=== PATIENT | female | born 1955 | race Caucasian/White ===

== ENCOUNTER 2017-02-02 21:27 | Emergency (ER) | payer OTHER ==
[2017-02-02 21:50] VITALS: TEMP 97.9; BMI 34.0
--- NOTE | 2017-02-02 21:59 | PDOC ---
Rapid Medical Evaluation Chief Complaint: Chest Pain Time Seen by Provider: 02/02/17 21:57 Medical Evaluation: Allergies Allergy/AdvReac Type Severity Reaction Status Date / Time No Known Allergies Allergy Verified 02/02/17 21:47 Vital Signs Temp Pulse Resp BP Pulse Ox 97.9 F 68 18 156/96 96 02/02/17 21:47 02/02/17 21:47 02/02/17 21:47 02/02/17 21:47 02/02/17 21:47 02/02/17 21:58 Pt not seen but ekg ordered
--- NOTE | 2017-02-02 22:11 | PDOC ---
History of Present Illness - General History Source: Patient Exam Limitations: No Limitations - History of Present Illness Initial Comments: 02/02/17 22:21 The patient is a 61 year old female with no significant past medical history who presents to the ED with left sternal border chest pain 1 hour prior to presentation. Patient describes her pain as nonradiating, intermittent, and sharp in nature. She reports SOB when pain is at its worse. Patient denies diaphoresis, lightheadedness, jaw pain, shoulder pain, arm pain, nausea, or vomiting. Daughter gave patient two 81 mg aspirin prior to presentation. Patient states she has not experience chest pain in the past. The patient denies fever, chills, cough, abdominal pain, and diarrhea. Allergies: NKDA Social History: Current smoker (half pack per day) Past Surgical History: appendectomy PCP: Dr. Pura Anglin <Mar Real - Last Filed: 02/02/17 22:23> - General History Source: Patient <Levon Rhodes - Last Filed: 02/03/17 00:01> - General Chief Complaint: Chest Pain Stated Complaint: CHEST PAIN Time Seen by Provider: 02/02/17 21:57 Past History <Mar Real - Last Filed: 02/02/17 22:23> - Past Medical History Other medical history: denies - Surgical History Appendectomy: Yes - Immunization History Immunization Up to Date: Yes - Psycho/Social/Smoking Cessation Hx Suicidal Ideation: No Smoking History: Never smoked Number of Cigarettes Smoked Daily: 12 Information on smoking cessation initiated: No Hx Alcohol Use: No Drug/Substance Use Hx: No Substance Use Type: Alcohol <Levon Rhodes - Last Filed: 02/03/17 00:01> - Past Medical History Allergies/Adverse Reactions: Allergies Allergy/AdvReac Type Severity Reaction Status Date / Time No Known Allergies Allergy Verified 02/02/17 21:47 Home Medications: Ambulatory Orders NK [No Known Home Medication] 02/02/17 Review of Systems - Review of Systems Able to Perform ROS?: Yes Comments:: 02/02/17 22:21 CONSTITUTIONAL: Absent: fever, no chills, no fatigue EYES: Absent: visual changes ENT: Absent: ear pain, no sore throat CARDIOVASCULAR: +left sternal border chest pain Absent: no palpitations RESPIRATORY: +SOB Absent: cough GI: Absent: abdominal pain, no nausea, no vomiting, no constipation, no diarrhea GENITOURINARY: Absent: dysuria, no frequency, no hematuria MUSKULOSKELETAL: Absent: back pain, no arthralgia, no myalgia SKIN: Absent: rash NEURO: Absent: headache <Mar Real - Last Filed: 02/02/17 22:23> *Physical Exam - Vital Signs Last Vital Signs Temp Pulse Resp BP Pulse Ox 97.9 F 68 18 156/96 96 02/02/17 21:47 02/02/17 21:47 02/02/17 21:47 02/02/17 21:47 02/02/17 21:47 - Physical Exam Comments: 02/02/17 22:21 GENERAL: Well-appearing, well-nourished. No apparent distress. HEENT: Normocephalic, atraumatic. PERRL, EOM intact. CARDIOVASCULAR: Normal S1, S2. Regular rate and rhythm. PULMONARY: Clear to auscultation bilaterally. ABDOMEN: Soft, non-distended, non-tender. EXTREMITIES: Normal ROM in all four extremities. No gross deformities. SKIN: Warm, dry. No rash NEUROLOGICAL: No focal neurological deficits. <Mar Real - Last Filed: 02/02/17 22:23> - Vital Signs Last Vital Signs Temp Pulse Resp BP Pulse Ox 97.9 F 68 18 156/96 96 02/02/17 21:47 02/02/17 21:47 02/02/17 21:47 02/02/17 21:47 02/02/17 21:47 <Levon Rhodes - Last Filed: 02/03/17 00:01> Heart Score/ECG Review - ECG Impressions Comment:: 02/02/17 22:23 NSR @67bpm Anterior infarct, age undetermined Abnormal ECG <Mar Real - Last Filed: 02/02/17 22:23> ED Treatment Course - LABORATORY CBC & Chemistry Diagram: 02/02/17 22:40 02/02/17 22:40 <Levon Rhodes - Last Filed: 02/03/17 00:01> Medical Decision Making - Medical Decision Making 02/03/17 00:01 Dr. Rhodes: The scribe's documentation has been prepared under my direction and personally reviewed by me in its entirery. I confirm that the note above accurately reflects all work, treatment, procedures, and medical decision making performed by me. <Levon Rhodes - Last Filed: 02/03/17 00:01> *DC/Admit/Observation/Transfer - Attestations Scribe Attestion: 02/02/17 22:21 Documentation prepared by Mar Real, acting as medical imaging specialist for Levon Rhodes MD <Mar Real - Last Filed: 02/02/17 22:23> - Discharge Dispostion Admit: No <Levon Rhodes - Last Filed: 02/03/17 00:01> Diagnosis at time of Disposition: Chest pain Qualifiers: Chest pain type: unspecified Qualified Code(s): R07.9 - Chest pain, unspecified - Discharge Dispostion Disposition: HOME Condition at time of disposition: Stable - Referrals Referrals: Pura Anglin MD [Primary Care Provider] - - Patient Instructions Printed Discharge Instructions: DI for Chest Pain
[2017-02-02] MEDS ORDERED: ACETAMINOPHEN 325 MG TABLET (FP) PO ONE (22:12)
[2017-02-02] MEDS ORDERED: ACETAMINOPHEN 325 MG TABLET (FP) ONE (22:20)
[2017-02-02 22:52] LABS: EOSINOPHIL 2.6 % (0-4.5); MCH 32.3 pg (25.7-33.7); MCHC 34.1 g/dl (32.0-36.0); MEAN CELL VOLUME 94.8 fl (80-96); NEUTROPHILS 48.2 % (42.8-82.8); PLATELET COUNT 276 K/MM3 (134-434); RDW 13.4 % (11.6-15.6); WHITE BLOOD COUNT 9.1 K/mm3 (4.0-10.0)
[2017-02-02 23:22] LABS: INR 0.92 (0.82-1.09); PROTHROMBIN TIME (PATIENT) 10.1 SEC (9.98-11.88)
[2017-02-02 23:33] LABS: ALBUMIN 3.9 g/dl (3.4-5.0); ALK PHOS 90 U/L (45-117); ANION GAP 10 (8-16); BILIRUBIN,TOTAL 0.3 mg/dL (0.2-1.0); CO2 27 mmol/L (21-32); CREATININE 0.7 mg/dL (0.55-1.02); GLUCOSE,RANDOM 93 mg/dL (74-106); SGOT/AST 14 U/L (15-37); SGPT/ALT 23 U/L (12-78); TOT PROT 6.7 g/dl (6.4-8.2)
[2017-02-02 23:34] LABS: TROPONIN I < 0.02 ng/ml (0.00-0.05)
[2017-02-02 23:52] VITALS: BP 160/76; PULSE 71
--- NOTE | 2017-02-03 14:12 | EKG ---
Test Reason : Blood Pressure : / mmHG Vent. Rate : 067 BPM Atrial Rate : 067 BPM P-R Int : 130 ms QRS Dur : 076 ms QT Int : 394 ms P-R-T Axes : 040 030 038 degrees QTc Int : 416 ms NORMAL SINUS RHYTHM ANTERIOR INFARCT , AGE UNDETERMINED ABNORMAL ECG WHEN COMPARED WITH ECG OF 07-MAR-2011 10:06, ANTERIOR INFARCT IS NOW PRESENT Confirmed by PITER LLANOS, LYLE ([id number]) on 02/03/2017 2:12:40 PM Referred By: Confirmed By:LYLE DUMAS MD
== END 2017-02-03 00:11 | disposition home or self-care (01) ==
LOC: JER 21:27
DX: R07.9 Chest pain, unspecified (principal)
CPT/HCPCS: 36415; 80053; 82550; 84484; 85025; 85610; 93005; 93010; 99283-25

== ENCOUNTER 2019-10-27 04:05 | Observation (INO) | payer OTHER ==
[2019-10-27 04:27] VITALS: TEMP 97.5; BMI 34.5
--- NOTE | 2019-10-27 05:03 | PDOC ---
History of Present Illness - General Chief Complaint: Palpitations Stated Complaint: PALPITATIONS,NAUSEA,HEADACHE Time Seen by Provider: 10/27/19 04:59 Past History - Past Medical History Allergies/Adverse Reactions: Allergies Allergy/AdvReac Type Severity Reaction Status Date / Time No Known Allergies Allergy Verified 10/27/19 04:24 Home Medications: Ambulatory Orders Meloxicam 15 mg PO DAILY PRN 10/27/19 Valsartan/Hydrochlorothiazide [Valsartan-Hctz 160-12.5 mg Tab] 1 tablet PO DAILY 10/27/19 - Surgical History Appendectomy: Yes - Immunization History Immunization Up to Date: Yes - Psycho Social/Smoking Cessation Hx Smoking History: Never smoked Have you smoked in the past 12 months: No Number of Cigarettes Smoked Daily: 12 Information on smoking cessation initiated: No Hx Alcohol Use: No Drug/Substance Use Hx: No Substance Use Type: Alcohol *Physical Exam - Vital Signs Last Vital Signs Temp Pulse Resp BP Pulse Ox 97.5 F L 84 20 194/75 H 99 10/27/19 04:24 10/27/19 04:24 10/27/19 04:24 10/27/19 04:24 10/27/19 04:24 Heart Score/ECG Review - History History: Moderately suspicious - Electrocardiogram EKG: Normal - Age Age: >/= 65 - Risk Factors Risk Factors Heart Score: Yes Hx Hypertension, Yes Smoking History, Yes Hx Obesity Based on the list above the patient has:: >/=3 risk factors or Hx atherosclerotic disease - Troponin Troponin: </= normal limit - Score Heart Score - Total: 5 - ECG Intrepretation Rhythm: Regular Rhythm - Mil[place] Milam: Normal - ECG Impressions Normal ECG: Yes Non-specific ST Elevation: No Ischemic Changes: No Bradycardia: No ED Treatment Course - LABORATORY CBC & Chemistry Diagram: 10/27/19 05:40 10/27/19 05:40 Medical Decision Making - Medical Decision Making 10/27/19 06:59 HPI: 64yo F hx HTN (recent dx this year, started Valsartan/HCTZ 10 days ago), smoking , obesity, and ?HLD presents from home c/o acute onset at rest at 0300 substernal throbbing intermittent nonpleuritic nonpositional chest pain associated with diaphoresis, SOB, gas/burping, palpitations, and nausea, improving since arrival in ED, no hx similar sx. Pt was in [place] today. Pt did have 3 beers (drinks rarely) and a big meal and stayed at family's house late. At 0130, pt developed headache, b/l sides of head, L>R, throbbing, no provoking factors, no association with photophobia/blurry vision/fever/neck pain/neck stiffness/numbness/tingling/weakness, resolved with 2 excedrin, exactly the same as intermittent headaches for past 2-4wks that PCP told was due to HTN; headaches have been improving since starting HTN medication. Pt was dx with HTN earlier this year and started on Losartan months ago but dc'd due to cough AE. At 0300 today pt was resting at home and suddenly developed nausea, diaphoresis , SOB, gas, palpitations, and CP. Pt has been anxious since, but sx have been improving since arrival in ED. Pt feels off/not well, no hx of similar sx. Endorses BOOGIE x few weeks while walking up hill to house, no hx of BOOGIE. Endorses chronic intermittent b/l LE swelling (especially when on planes) and L calf tenderness, both of unknown cause. Denies hx CAD, FHx of early CVD, hemoptysis, hx DVT/PE, recent surgery, recent trauma, recent travel, immobilization, estrogen or OCP use, malignancy. Denies back pain, neck pain, orthopnea, trauma , falls, heavy lifting, fever, chills, fatigue, dizziness, numbness/tingling, weakness, vision changes, cough, abdominal pain, blood in stool, diarrhea, constipation, vomiting, dysuria, hematuria, confusion. PCP - Bhaskar Arana ROS: Constitutional: Positive for diaphoresis. Negative for chills, fever, fatigue. HENT: Negative for sore throat, rhinorrhea, congestion. Eyes: Negative for visual disturbance. Respiratory: Positive for shortness of breath. Negative for cough, and wheezing. Cardiovascular: Positive for chest pain, palpitations, and leg swelling. Gastrointestinal: Positive for nausea and increased gas. Negative for abdominal pain, blood in stool, constipation, diarrhea, and vomiting. Genitourinary: Negative for dysuria, flank pain, and hematuria. Musculoskeletal: Negative for myalgias, back pain, and neck pain. Skin: Negative for rash. Neurological: Positive for headaches. Negative for light-headedness, dizziness, vertigo, syncope, weakness, numbnes. Psychiatric/Behavioral: Negative for behavioral problems and confusion. PE: Gen: Alert, NAD, anxious-appearing. HEENT: PERRL, EOMI, MMM, NCAT. No conjunctival pallor. Sclera are non-icteric. Neck supple. CV: Regular rate and rhythm. No murmurs, rubs, or gallops. PULM: No resp distress. CTAB, no wheezes, rales, or rhonchi. No chest tenderness. ABD: soft, NT/ND, no rebound tenderness or guarding, no CVA tenderness. BACK: No TTP of c/t/l-spine. No step-offs or deformities. MSK: No bony deformities. 2+ pulses in all extremities. NEURO: AAOx3. PERRL. No gross CN deficits. Strength and sensation grossly intact throughout. EXTREMITIES: 1+ pitting edema bilaterally. +L calf tenderness. No cyanosis. No clubbing. PSYCH: Anxious mood and normal thought pattern. SKIN: Warm and dry. Normal capillary refill. No rashes. No jaundice. MDM: 64yo F hx HTN (recent dx this year, started Valsartan/HCTZ 10 days ago), smoking , obesity, and ?HLD presents from home with acute onset at rest at 0300 substernal throbbing intermittent nonpleuritic nonpositional nonreproducible chest pain associated with diaphoresis, SOB, gas/burping, palpitations, and nausea; BOOGIE x few weeks; and chronic intermittent b/l LE swelling and L calf tenderness. Hypertensive 194/75, other VSS, benign abdomen, lungs CTAB, neurologically intact, 1+ pitting edema b/l with L calf TTP. Highest concern for ACS/AL vs arrhythmia vs PE. Moderate concern for ACS/AL due to significant RFs and association of CP with nausea/diaphoresis/SOB, HEART score 5 (age, HTN, smoking, obesity, moderately suspicious story) - r/o ACS/AL with EKG and troponin x2 and admit for tele obs for further eval. Low concern for pulmonary etiology due to non pleuritic nature of CP and lungs CTAB, but due to SOB, r/o PNA, COPD exacerbation, and PTX with CXR and labs. Lower concern for PE due to lack of inciting events or tachycardia, but due to SOB and BOOGIE and leg swelling/calf tenderness (though chronic per pt), Wells 3-6 (s/ s of DVT and equally likely dx as #1), r/o low-moderate risk pt with d-dimer and duplex BLEs. Lack of tearing nature of chest pain, lack of back pain, lack of hemodynamic instability, and pulses equal bilaterally, dissection of very low concern - no further testing indicated. Also consider infectious etiologies , anemia, metabolic derangements, thyroid pathology, or anxiety - r/o with CBC, CMP, Mg, Phos, TSH. Due to nausea and onset after beer/large meal, also consider GI pathologies such as gastritis/GERD, pancreatitis or GB pathology; benign abdomen and denies abdominal pain; r/o with labs. -EKG -CXR -Duplex BLEs -CBC,CMP,Mg,Phos,Coags,D-dimer,TSH,Lipase,Cardiac profile w/tropx2,BNP,UA/UC -Dispo: likely admit tele obs under hospitalist for atypical CP Labs reviewed. Of note, WBC 10.1, Lipase 450, TSH 5.42, trop neg, BNP 103.7. Added free T3/T4 due to new onset high TSH. CXR reviewed: no acute pathology EKG reviewed: NSR, 77bpm, normal intervals, normal axis, no e/o acute ischemia 10/27/19 07:42 Pt still not feeling well, especially in chest, just feels off. Discussed plan - agrees to stay. Signed out to Dr Espinal, pending UA, duplex, d-dimer, T3/T4, 2nd trop at 0840, admit tele obs ACS/AL and consult cardiology Discharge - Discharge Information Problems reviewed: Yes Clinical Impression/Diagnosis: Palpitations Chest pain Qualifiers: Chest pain type: precordial pain Qualified Code(s): R07.2 - Precordial pain - Follow up/Referral - Patient Discharge Instructions - Post Discharge Activity
--- NOTE | 2019-10-27 05:23 | PDOC ---
Attending Attestation - Resident Resident Name: Jannet Rodriguez - ED Attending Attestation I have performed the following: I have examined & evaluated the patient, The case was reviewed & discussed with the resident, I agree w/resident's findings & plan - HPI HPI: 10/27/19 05:41 Hx obesity and smoker 1 episode of palpitation and nausea at the end of the Thanksgiving night of feasting and dancing and drinking 2 beers. Pt had more exercise and food than she usually gets. Feeling better here 10/27/19 06:27 Pt appears well at this time. She is a smoker and we discussed the need to quit. She drinks a half gallon of 2% milk daily ("because I love milk") and we discussed that she needs to quit as she is ingesting 1000kcals daily from milk. - Physicial Exam PE: 10/27/19 06:29 Normal exam Left leg slightly more swollen than the right. But both legs are swollen Pt has clear breath sounds and normal heart sounds and gassy abd sounds. Afebrile neuro intact A+Ox3 No chest pain at this time no rashes and no flank pain - Medical Decision Making 10/27/19 06:30 Labs pending SONO legs pending to r/o blood clot EKG NSR CXR pending Pt will be signed out to the day ER team Heart Score/ECG Review - ECG Intrepretation Rhythm: Regular Rhythm - Meally Meally: Normal - P and [place] Delta Wave(s) Present: No WPW: No - QRS Poor R Wave Progression: No Q Wave Present: No - ST and T Early Repolarization: No Non Specific ST-T Wave changes: No Flattened T Waves: No Prolonged Q-T Interval: No - ECG Impressions Normal ECG: Yes Non-specific ST Elevation: No Ischemic Changes: No Bradycardia: No Torsades aroldo Pointes: No WPW: No
[2019-10-27 06:18] LABS: BASO % 0.9 % (0-2.0); EOS % 2.7 % (0-4.5); HEMATOCRIT 42.8 % (32.4-45.2); HEMOGLOBIN 14.7 GM/dL (10.7-15.3); LYMPH % 31.5 % (8-40); MCH 32.6 pg (25.7-33.7); MCHC 34.4 g/dl (32.0-36.0); MEAN CELL VOLUME 94.7 fl (80-96); MEAN PLT VOLUME 8.5 fl (7.5-11.1); MONO % 8.4 % (3.8-10.2); NEUT % 56.5 % (42.8-82.8); PLATELET COUNT 319 K/MM3 (134-434); RBC 4.51 M/mm3 (3.60-5.2); RDW 13.2 % (11.6-15.6); WHITE BLOOD COUNT 10.1 K/mm3 (4.0-10.0)
[2019-10-27 06:33] LABS: INR 0.84 (0.83-1.09); PROTHROMBIN TIME (PATIENT) 9.9 SEC (9.7-13.0)
[2019-10-27 06:48] LABS: ALBUMIN 4.3 g/dl (3.4-5.0); BILIRUBIN,TOTAL 0.2 mg/dL (0.2-1); BLOOD UREA NITROGEN 24.5 mg/dL (7-18); CALCIUM 9.4 mg/dL (8.5-10.1); CREATININE 0.9 mg/dL (0.55-1.3); N-TERMINAL BNP 103.7 pg/ml (5-125); PHOSPHOROUS 3.8 mg/dL (2.5-4.9); POTASSIUM 4.5 mmol/L (3.5-5.1); TOT PROT 7.9 g/dl (6.4-8.2)
[2019-10-27 07:03] LABS: HYALINE CASTS 1 /lpf (0-8); URINE APPEARANCE CLEAR; URINE BACTERIA 12.7 /hpf (NEGATIVE); URINE BILIRUBIN NEGATIVE (NEGATIVE); URINE COLOR YELLOW; URINE GLUCOSE (UA) NEGATIVE (NEGATIVE); URINE KETONE NEGATIVE (NEGATIVE); URINE LEUK ESTERASE 1+ (NEGATIVE); URINE NITRITE NEGATIVE (NEGATIVE); URINE PROTEIN NEGATIVE (NEGATIVE); URINE RBC 1 /hpf (0-4); URINE UROBILINOGEN 0.2 mg/dL (0.2-1.0); URINE WBC 8 /hpf (0-5)
--- NOTE | 2019-10-27 10:25 | PDOC ---
*Physical Exam - Vital Signs Last Vital Signs Temp Pulse Resp BP Pulse Ox 97.5 F L 74 20 135/66 99 10/27/19 04:24 10/27/19 06:18 10/27/19 06:18 10/27/19 06:18 10/27/19 06:18 ED Treatment Course - LABORATORY CBC & Chemistry Diagram: 10/27/19 05:40 10/27/19 05:40 - ADDITIONAL ORDERS Additional order review: Laboratory Results 10/27/19 10/27/19 10/27/19 07:47 06:00 05:40 PT with INR INR D-Dimer 473 Sodium Potassium Chloride Carbon Dioxide Anion Gap BUN Creatinine Est GFR (CKD-EPI)AfAm Est GFR (CKD-EPI)NonAf Random Glucose Calcium Phosphorus Magnesium Total Bilirubin AST ALT Alkaline Phosphatase Creatine Kinase Troponin I < 0.02 B-Natriuretic Peptide Total Protein Albumin Lipase TSH Free T4 Urine Color Yellow Urine Appearance Clear Urine pH 5.0 Ur Specific [place] 1.012 Urine Protein Negative Urine Glucose (UA) Negative Urine Ketones Negative Urine Blood Trace Urine Nitrite Negative Urine Bilirubin Negative Urine Urobilinogen 0.2 Ur Leukocyte Esterase 1+ H Urine WBC (Auto) 8 Urine RBC (Auto) 1 Urine Casts (Auto) 1 U Epithel Cells (Auto) 2.0 Urine Bacteria (Auto) 12.7 10/27/19 10/27/19 10/27/19 05:40 05:40 05:40 PT with INR 9.90 INR 0.84 D-Dimer Sodium 139 Potassium 4.5 Chloride 106 Carbon Dioxide 25 Anion Gap 8 BUN 24.5 H Creatinine 0.9 Est GFR (CKD-EPI)AfAm 77.22 Est GFR (CKD-EPI)NonAf 66.63 Random Glucose 110 H Calcium 9.4 Phosphorus 3.8 Magnesium 2.0 Total Bilirubin 0.2 AST 24 ALT 29 Alkaline Phosphatase 112 Creatine Kinase Troponin I B-Natriuretic Peptide 103.7 Total Protein 7.9 Albumin 4.3 Lipase 450 H TSH 5.42 H Free T4 0.85 Urine Color Urine Appearance Urine pH Ur Specific [place] Urine Protein Urine Glucose (UA) Urine Ketones Urine Blood Urine Nitrite Urine Bilirubin Urine Urobilinogen Ur Leukocyte Esterase Urine WBC (Auto) Urine RBC (Auto) Urine Casts (Auto) U Epithel Cells (Auto) Urine Bacteria (Auto) 10/27/19 05:40 PT with INR INR D-Dimer Sodium Potassium Chloride Carbon Dioxide Anion Gap BUN Creatinine Est GFR (CKD-EPI)AfAm Est GFR (CKD-EPI)NonAf Random Glucose Calcium Phosphorus Magnesium Total Bilirubin AST ALT Alkaline Phosphatase Creatine Kinase 148 Troponin I < 0.02 B-Natriuretic Peptide Total Protein Albumin Lipase TSH Free T4 Urine Color Urine Appearance Urine pH Ur Specific [place] Urine Protein Urine Glucose (UA) Urine Ketones Urine Blood Urine Nitrite Urine Bilirubin Urine Urobilinogen Ur Leukocyte Esterase Urine WBC (Auto) Urine RBC (Auto) Urine Casts (Auto) U Epithel Cells (Auto) Urine Bacteria (Auto) 10/27/19 05:40 RBC 4.51 MCV 94.7 MCHC 34.4 RDW 13.2 MPV 8.5 Neutrophils % 56.5 Lymphocytes % 31.5 Monocytes % 8.4 Eosinophils % 2.7 Basophils % 0.9 Medical Decision Making - Medical Decision Making 10/27/19 10:23 64yo F hx HTN (recent dx this year, started Valsartan/HCTZ 10 days ago), smoking , obesity, and ?HLD presents from home with acute onset at rest at 0300 substernal throbbing intermittent nonpleuritic nonpositional nonreproducible chest pain associated with diaphoresis, SOB, gas/burping, palpitations, and nausea; BOOGIE x few weeks; and chronic intermittent b/l LE swelling and L calf tenderness. Hypertensive 194/75, other VSS, benign abdomen, lungs CTAB, neurologically intact, 1+ pitting edema b/l with L calf TTP. -will followup UA, duplex, d-dimer, T3/T4, 2nd trop at 0840, admit tele obs ACS/ NV 10/27/19 10:24 UA negative D dimer negative admitted to tele obs under Dr Arana Discharge - Discharge Information Problems reviewed: Yes Clinical Impression/Diagnosis: Palpitations Chest pain Qualifiers: Chest pain type: unspecified Qualified Code(s): R07.9 - Chest pain, unspecified - Follow up/Referral Referrals: Baldemar Gurrola [Primary Care Provider] - - Patient Discharge Instructions - Post Discharge Activity
--- NOTE | 2019-10-27 10:51 | HP ---
<Genaor Arana - Last Filed: 10/27/19 12:15> CHIEF COMPLAINT: PCP: HISTORY OF PRESENT ILLNESS: ER course was notable for: (1) (2) (3) Recent Travel: PAST MEDICAL HISTORY: PAST SURGICAL HISTORY: Social History: Smoking: Alcohol: Drugs: Allergies No Known Allergies Allergy (Verified 10/27/19 04:24) HOME MEDICATIONS: Home Medications Medication Instructions Recorded Meloxicam 15 mg PO DAILY PRN 10/27/19 Valsartan/Hydrochlorothiazide 1 tablet PO DAILY 10/27/19 [Valsartan-Hctz 160-12.5 mg Tab] REVIEW OF SYSTEMS CONSTITUTIONAL: Absent: fever, chills, diaphoresis, generalized weakness, malaise, loss of appetite, weight change HEENT: Absent: rhinorrhea, nasal congestion, throat pain, throat swelling, difficulty swallowing, mouth swelling, ear pain, eye pain, visual changes CARDIOVASCULAR: Absent: chest pain, syncope, palpitations, irregular heart rate, lightheadedness , peripheral edema RESPIRATORY: Absent: cough, shortness of breath, dyspnea with exertion, orthopnea, wheezing, stridor, hemoptysis GASTROINTESTINAL: Absent: abdominal pain, abdominal distension, nausea, vomiting, diarrhea, constipation, melena, hematochezia GENITOURINARY: Absent: dysuria, frequency, urgency, hesitancy, hematuria, flank pain, genital pain MUSCULOSKELETAL: Absent: myalgia, arthralgia, joint swelling, back pain, neck pain SKIN: Absent: rash, itching, pallor HEMATOLOGIC/IMMUNOLOGIC: Absent: easy bleeding, easy bruising, lymphadenopathy, frequent infections ENDOCRINE: Absent: unexplained weight gain, unexplained weight loss, heat intolerance, cold intolerance NEUROLOGIC: Absent: headache, focal weakness or paresthesias, dizziness, unsteady gait, seizure, mental status changes, bladder or bowel incontinence PSYCHIATRIC: Absent: anxiety, depression, suicidal or homicidal ideation, hallucinations. PHYSICAL EXAMINATION Vital Signs - 24 hr 10/27/19 10/27/19 04:24 06:18 Temperature 97.5 F L Pulse Rate 84 Pulse Rate [ 74 Right] Respiratory 20 20 Rate Blood Pressure 194/75 H Blood Pressure 135/66 [Right Arm] O2 Sat by Pulse 99 99 Oximetry (%) GENERAL: Awake, alert, and fully oriented, in no acute distress. HEAD: Normal with no signs of trauma. EYES: Pupils equal, round and reactive to light, extraocular movements intact, sclera anicteric, conjunctiva clear. No lid lag. EARS, NOSE, THROAT: Ears normal, nares patent, oropharynx clear without exudates. Moist mucous membranes. NECK: Normal range of motion, supple without lymphadenopathy, JVD, or masses. LUNGS: Breath sounds equal, clear to auscultation bilaterally. No wheezes, and no crackles. No accessory muscle use. HEART: Regular rate and rhythm, normal S1 and S2 without murmur, rub or gallop. ABDOMEN: Soft, nontender, not distended, normoactive bowel sounds, no guarding, no rebound, no masses. No hepatomegaly or splenomegaly. MUSCULOSKELETAL: Normal range of motion at all joints. No bony deformities or tenderness. No CVA tenderness. UPPER EXTREMITIES: 2+ pulses, warm, well-perfused. No cyanosis. No clubbing. No peripheral edema. LOWER EXTREMITIES: 2+ pulses, warm, well-perfused. No calf tenderness. No peripheral edema. NEUROLOGICAL: Cranial nerves II-XII intact. Normal speech. Normal gait. PSYCHIATRIC: Cooperative. Good eye contact. Appropriate mood and affect. SKIN: Warm, dry, normal turgor, no rashes or lesions noted, normal capillary refill. Laboratory Results - last 24 hr 10/27/19 10/27/19 10/27/19 05:40 05:40 05:40 WBC 10.1 H RBC 4.51 Hgb 14.7 Hct 42.8 MCV 94.7 MCH 32.6 MCHC 34.4 RDW 13.2 Plt Count 319 MPV 8.5 Absolute Neuts (auto) 5.7 Neutrophils % 56.5 Lymphocytes % 31.5 Monocytes % 8.4 Eosinophils % 2.7 Basophils % 0.9 Nucleated RBC % 0 PT with INR INR D-Dimer Sodium 139 Potassium 4.5 Chloride 106 Carbon Dioxide 25 Anion Gap 8 BUN 24.5 H Creatinine 0.9 Est GFR (CKD-EPI)AfAm 77.22 Est GFR (CKD-EPI)NonAf 66.63 Random Glucose 110 H Calcium 9.4 Phosphorus 3.8 Magnesium 2.0 Total Bilirubin 0.2 AST 24 ALT 29 Alkaline Phosphatase 112 Creatine Kinase 148 Troponin I < 0.02 B-Natriuretic Peptide 103.7 Total Protein 7.9 Albumin 4.3 Lipase TSH Free T4 0.85 Urine Color Urine Appearance Urine pH Ur Specific Enochs Urine Protein Urine Glucose (UA) Urine Ketones Urine Blood Urine Nitrite Urine Bilirubin Urine Urobilinogen Ur Leukocyte Esterase Urine WBC (Auto) Urine RBC (Auto) Urine Casts (Auto) U Epithel Cells (Auto) Urine Bacteria (Auto) 10/27/19 10/27/19 10/27/19 05:40 05:40 05:40 WBC RBC Hgb Hct MCV MCH MCHC RDW Plt Count MPV Absolute Neuts (auto) Neutrophils % Lymphocytes % Monocytes % Eosinophils % Basophils % Nucleated RBC % PT with INR 9.90 INR 0.84 D-Dimer 473 Sodium Potassium Chloride Carbon Dioxide Anion Gap BUN Creatinine Est GFR (CKD-EPI)AfAm Est GFR (CKD-EPI)NonAf Random Glucose Calcium Phosphorus Magnesium Total Bilirubin AST ALT Alkaline Phosphatase Creatine Kinase Troponin I B-Natriuretic Peptide Total Protein Albumin Lipase 450 H TSH 5.42 H Free T4 Urine Color Urine Appearance Urine pH Ur Specific Enochs Urine Protein Urine Glucose (UA) Urine Ketones Urine Blood Urine Nitrite Urine Bilirubin Urine Urobilinogen Ur Leukocyte Esterase Urine WBC (Auto) Urine RBC (Auto) Urine Casts (Auto) U Epithel Cells (Auto) Urine Bacteria (Auto) 10/27/19 10/27/19 06:00 07:47 WBC RBC Hgb Hct MCV MCH MCHC RDW Plt Count MPV Absolute Neuts (auto) Neutrophils % Lymphocytes % Monocytes % Eosinophils % Basophils % Nucleated RBC % PT with INR INR D-Dimer Sodium Potassium Chloride Carbon Dioxide Anion Gap BUN Creatinine Est GFR (CKD-EPI)AfAm Est GFR (CKD-EPI)NonAf Random Glucose Calcium Phosphorus Magnesium Total Bilirubin AST ALT Alkaline Phosphatase Creatine Kinase Troponin I < 0.02 B-Natriuretic Peptide Total Protein Albumin Lipase TSH Free T4 Urine Color Yellow Urine Appearance Clear Urine pH 5.0 Ur Specific Enochs 1.012 Urine Protein Negative Urine Glucose (UA) Negative Urine Ketones Negative Urine Blood Trace Urine Nitrite Negative Urine Bilirubin Negative Urine Urobilinogen 0.2 Ur Leukocyte Esterase 1+ H Urine WBC (Auto) 8 Urine RBC (Auto) 1 Urine Casts (Auto) 1 U Epithel Cells (Auto) 2.0 Urine Bacteria (Auto) 12.7 ASSESSMENT/PLAN: ATTENDING PHYSICIAN STATEMENT I saw and evaluated the patient. I reviewed the resident's note and discussed the case with the resident. I agree with the resident's findings and plan as documented. SUBJECTIVE: OBJECTIVE: ASSESSMENT AND PLAN: <Jennifer Chiang - Last Filed: 10/27/19 13:52> Hospitalist Medicine 64 y/o F with PMH HTN, arthritis, who presents for chest pain which started early this AM. Per pt, yesterday, she went to a Thanksgiving dinner and felt well. Drank "a few beers" which she does socially, ate a full meal and got home at 3AM. At this time, she began to feel uneasy; states she had substernal chest discomfort a/w nausea, however no emesis. Was a/w headache. States that the chest pain was not continuous and occurred on exertion and at rest. Was without radiation. Does not follow with a herd tester, and no fam hx of cardiac dz/ sudden . No recent stressors. Denies ROCHA, fever, chills, SOB, or changes in urinary or bowel function. Lives alone at home; . PMH: as above PsxH: appendectomy, past deviated nasal septum meds: as below, meloxicam for OA, valsartan-hctz allergies: NKDA FH: denies SH: retired; used to work for [employer]. current active smoker 10-12 cigs/day x 25 yrs has thoughts of cutting back drinks alcohol on holidays, socially. denies drug use. HOME MEDICATIONS: Home Medications Medication Instructions Recorded Meloxicam 15 mg PO DAILY PRN 10/27/19 Valsartan/Hydrochlorothiazide 1 tablet PO DAILY 10/27/19 [Valsartan-Hctz 160-12.5 mg Tab] PHYSICAL EXAMINATION Vital Signs - 24 hr 10/27/19 10/27/19 04:24 06:18 Temperature 97.5 F L Pulse Rate 84 Pulse Rate [ 74 Right] Respiratory 20 20 Rate Blood Pressure 194/75 H Blood Pressure 135/66 [Right Arm] O2 Sat by Pulse 99 99 Oximetry (%) General: resting comfortably, in NAD HEENT: NCAT, PERRLA neck: supple. no JVD cardio: S1, S2 RRR. no r/m/g. non reproducible pulm: CTA b/l. no accessory m usage abdomen: nontender, nondistended. obese LE: 2+ pulses. trace edema. neuro: bi consultant 2-12 grossly intact. 5/5 motor strength UE, LE . sensation intact Laboratory Results 10/27/19 10/27/19 10/27/19 05:40 05:40 05:40 WBC 10.1 H Hgb 14.7 Hct 42.8 Plt Count 319 Sodium 139 Potassium 4.5 Chloride 106 Carbon Dioxide 25 BUN 24.5 H Creatinine 0.9 Troponin I < 0.02 TSH Free T4 0.85 Ur Leukocyte Esterase Urine WBC (Auto) Urine RBC (Auto) Urine Casts (Auto) U Epithel Cells (Auto) Urine Bacteria (Auto) 10/27/19 10/27/19 10/27/19 05:40 06:00 07:47 WBC Hgb Hct Plt Count Sodium Potassium Chloride Carbon Dioxide BUN Creatinine Troponin I < 0.02 TSH 5.42 H Free T4 Ur Leukocyte Esterase 1+ H Urine WBC (Auto) 8 Urine RBC (Auto) 1 Urine Casts (Auto) 1 U Epithel Cells (Auto) 2.0 Urine Bacteria (Auto) 12.7 Micro 10/27: ucx: pending Imaging EKG: NSR, no acute st-t wave changes. rate ~70bpm, qtc 445ms duplex U/S LE: (-) for clot ECHO: LVSF normal, EF 55-60%, RV normal in size and function, LA mildly dilated , mild MR, mild TR, mild aortic regurg, no pericardial effusion ASSESSMENT/PLAN: 64 y/o F with PMH HTN, arthritis, who presents for chest pain which started early this AM. #Chest pain, intermediate risk -without fam hx. only has hx of HTN -no recent known stressors -no EKG changes -may be 2/2 thyroid, as TSH high, nl t4 -f/u a1c -started on asa 81mg qd, lipitor 40mg qd -cardio consult: Dr. Fajardo -may need stress test #HTN -uncontrolled on admission, hctz increased to 25mg qd -c/w valsartan #Possible subclinical hypothyroidism -TSH elevated, T4 normal. f/u T3 -cont'd monitoring #R/o DVT -as with trace edema, c/o LE cramps -venous duplex (-) -f/u arterial duplex #Active smoker -counseled on quitting, agrees with cutting back -does not want nicotine patch at this time -does not qualify yet for low-dose CT: in appropriate age bracket however has not smoked for over 30 yrs #arthritis -can c/w tylenol PRN in hospital -as mobic can increase BP, will hold for now #F/E/N no need for IVF at this time continue to follow lytes na controlled/cholesterol controlled diet #DVT PPX: SCD's for now #Dispo tele-obs Visit type - Emergency Visit Emergency Visit: Yes ED Registration Date: 10/27/19 Care time: The patient presented to the Emergency Department on the above date and was hospitalized for further evaluation of their emergent condition. - New Patient This patient is new to me today: Yes Date on this admission: 10/27/19 - Critical Care Critical Care patient: No
[2019-10-27] MEDS ORDERED: ACETAMINOPHEN 325 MG TABLET (FP) PO PRN (10:56)
[2019-10-27] MEDS ORDERED: VALSARTAN 160 MG TABLET (UD) PO SCH (11:00)
[2019-10-27] MEDS ORDERED: HYDROCHLOROTHIAZIDE 12.5 MG CAPSULE (FP) PO SCH ×2 (11:00→12:16)
[2019-10-27] MEDS ORDERED: HYDROCHLOROTHIAZIDE 25 MG TABLET (FP) ONE (11:12)
[2019-10-27] MEDS ORDERED: VALSARTAN 80 MG TABLET (UD) ONE (11:13)
[2019-10-27] MEDS ORDERED: HYDROCHLOROTHIAZIDE 25 MG TABLET (FP) PO SCH (12:18)
[2019-10-27] MEDS ORDERED: ASPIRIN 81 MG CHEWABLE TABLETS PO SCH (12:30)
--- NOTE | 2019-10-27 13:37 | ECHO ---
Name: MEJIA MEZA Exam:Adult Echocardiogram Study Date: 10/27/2019 11:55 AM Age: 64 yrs Height: 61 in Weight: 183 lb BSA: 1.8 m2 MMode/2D Measurements & Calculations RVDd: 2.0 cm Ao root diam: 2.7 cm IVSd: 0.79 cm LA dimension: 3.8 cm LVIDd: 4.7 cm ACS: 1.7 cm LVIDs: 2.6 cm LVPWd: 0.83 cm IVSs: 1.1 cm LVPWs: 1.1 cm EDV(Teich): 102.3 ml ESV(Teich): 25.7 ml Doppler Measurements & Calculations MV E max anup: 56.8 cm/sec Ao V2 max: 183.3 cm/sec MV A max anup: 99.2 cm/sec Ao max P.4 mmHg MV E/A: 0.57 Ao V2 mean: 112.4 cm/sec Ao mean P.1 mmHg Ao V2 VTI: 35.2 cm AI P1/2t: 455.0 msec AI max anup: 225.5 cm/sec MR max anup: 552.4 cm/sec AI max P.4 mmHg MR max P.1 mmHg AI dec slope: 145.2 cm/sec2 TR max anup: 212.2 cm/sec PI end-d anup: 101.8 cm/sec TR max P.0 mmHg Med Peak E' Anup: 6.8 cm/sec Med E/e': 8.3 Lat Peak E' Anup: 7.5 cm/sec Lat E/e': 7.6 Left Ventricle Left ventricular systolic function is normal. Ejection Fraction = 55-60%. The transmitral spectral Do ppler flow pattern is suggestive of impaired LV relaxation. Right Ventricle The right ventricle is normal in size and function. Atria The left atrium is mildly dilated. Right atrial size is normal. Mitral Valve The mitral valve is normal in structure and function. There is no mitral valve stenosis. There is mil d mitral regurgitation. Tricuspid Valve The tricuspid valve is normal in structure and function. There is mild tricuspid regurgitation. Aortic Valve The aortic valve opens well. No hemodynamically significant valvular aortic stenosis. Mild aortic regurgitation. Pulmonic Valve The pulmonic valve is not well seen, but is grossly normal. There is no pulmonic valvular stenosis. M ild pulmonic valvular regurgitation. Great Vessels The aortic root is normal size. Pericardium/Pleura There is no pericardial effusion. Interpretation Summary Left ventricular systolic function is normal. Ejection Fraction = 55-60%. The transmitral spectral Doppler flow pattern is suggestive of impaired LV relaxation. The right ventricle is normal in size and function. The left atrium is mildly dilated. There is mild mitral regurgitation. There is mild tricuspid regurgitation. Mild aortic regurgitation. There is no pericardial effusion. MD Muro *Teofilo 10/27/2019 01:36 PM
[2019-10-27] MEDS ORDERED: ASPIRIN 81 MG CHEWABLE TABLETS ONE (14:18)
--- NOTE | 2019-10-27 14:53 | CON.CARD ---
Consult Consult Specialty:: Cardiology Referred by:: Hospitalist Medicine Reason for Consultation:: Chest pain - History of Present Illness Chief Complaint: Chest pain History of Present Illness: 64 y/o F with PMH HTN, arthritis, who presents for non-exertional substernal chest discomfort a/w nausea, flushing, diaphoresis and ROCHA w/o emesis. States that the chest pain was not continuous and occurred on exertion and at rest. Was without radiation. Does not follow with a workshop manager, and no fam hx of cardiac dz/sudden . She denies dyspnea, near or true syncope, palpitations , orthopnea, PND or LE edema. Lives alone at home; . PMH: as above PsxH: appendectomy, past deviated nasal septum meds: as below, meloxicam for OA, valsartan-hctz allergies: NKDA FH: denies SH: retired; used to work for [employer]. current active smoker 10-12 cigs/day x 25 yrs has thoughts of cutting back drinks alcohol on holidays, socially. denies drug use. - History Source History Provided By: Patient Limitations to Obtaining History: No Limitations - Alcohol/Substance Use Hx Alcohol Use: No - Smoking History Smoking history: Never smoked Have you smoked in the past 12 months: No Aproximately how many cigarettes per day: 12 Home Medications - Allergies Allergies/Adverse Reactions: Allergies Allergy/AdvReac Type Severity Reaction Status Date / Time No Known Allergies Allergy Verified 10/27/19 04:24 - Home Medications Home Medications: Ambulatory Orders Meloxicam 15 mg PO DAILY PRN 10/27/19 Valsartan/Hydrochlorothiazide [Valsartan-Hctz 160-12.5 mg Tab] 1 tablet PO DAILY 10/27/19 Review of Systems - Review of Systems Cardiovascular: reports: Chest Pain Vital Signs: Vital Signs Temperature 97.5 F L 10/27/19 04:24 Pulse Rate 74 10/27/19 06:18 Respiratory Rate 20 10/27/19 06:18 Blood Pressure 135/66 10/27/19 06:18 O2 Sat by Pulse Oximetry (%) 99 10/27/19 06:18 Constitutional: Yes: No Distress, Calm Neck: Yes: Supple Respiratory: Yes: Regular, CTA Bilaterally Gastrointestinal: Yes: Normal Bowel Sounds, Soft Cardiovascular: Yes: Regular Rate and Rhythm JVD: No Carotid Bruit: No Heart Sounds: Yes: S1, S2 Edema: No - Other Data Labs, Other Data: CBC, BMP 10/27/19 05:40 10/27/19 05:40 INR, PTT INR 0.84 (0.83-1.09) 10/27/19 05:40 Troponin, BNP 10/27/19 10/27/19 10/27/19 05:40 05:40 07:47 Troponin I < 0.02 < 0.02 B-Natriuretic Peptide 103.7 10/27/19 13:00 Troponin I < 0.02 B-Natriuretic Peptide Troponin, BNP 10/27/19 10/27/19 10/27/19 05:40 05:40 07:47 Troponin I < 0.02 < 0.02 B-Natriuretic Peptide 103.7 10/27/19 13:00 Troponin I < 0.02 B-Natriuretic Peptide NSR @ [address]-T changes Echo: Report Reviewed Ejection Fraction %: LVEF > or = 40 % Imaging - Results Chest X-ray: Report Reviewed ([facility]) Ultrasound: Report Reviewed ([facility] US: No sig stenosis in peripheral artery) Problem List - Problems (1) Hypertension Code(s): I10 - ESSENTIAL (PRIMARY) HYPERTENSION Qualifiers: Hypertension type: essential hypertension Qualified Code(s): I10 - Essential (primary) hypertension (2) Chest pain Code(s): R07.9 - CHEST PAIN, UNSPECIFIED Qualifiers: Chest pain type: precordial pain Qualified Code(s): R07.2 - Precordial pain Assessment/Plan 10/27/2019 Echo: Normal LV size and fxn LVEF 55-60%, abnl LV compliance, normal RV size and fxn, mild LAE, mild MR, TR, AR 1. Chest pain r/o CT 2. Hypertension 3. Smoking P:1. Ruling out for CT, chest TSH, lipid panel, Ha1c 2. Exercise treadmill testing r/o CAD, ECG is interpretable 3. Continue Diovan/HCT 160/12.5 qd, minimize meloxicam use 4. Further recommendations to follow, thank you for consultative opportunity
[2019-10-27 20:12] VITALS: BP 139/70; PULSE 74
[2019-10-27] MEDS ORDERED: ATORVASTATIN CA 40 MG TABLET (FP) PO SCH (22:00)
[2019-10-28] MEDS ORDERED: PATIENT'S OWN MEDICATION (NON-FORMULARY) (Valsartan/Hydrochlorothiazide [Valsartan-Hctz 16 PO SCH (10:00)
--- NOTE | 2019-10-30 11:57 | EKG ---
Test Reason : Blood Pressure : / mmHG Vent. Rate : 077 BPM Atrial Rate : 077 BPM P-R Int : 128 ms QRS Dur : 074 ms QT Int : 394 ms P-R-T Axes : 059 039 055 degrees QTc Int : 445 ms NORMAL SINUS RHYTHM NORMAL ECG WHEN COMPARED WITH ECG OF 02-FEB-2017 21:32, T WAVE VARIATION Confirmed by FINESSE MARX MD ([id number]) on 10/30/2019 11:56:40 AM Referred By: Confirmed By:FINESSE MARX MD
== END 2019-10-27 19:15 | disposition left against medical advice (07) ==
LOC: JER 04:05 → JERBED 08:41
PROVIDERS: ADMIT Internal Medicine; ATTEND Internal Medicine
DX: I10 Essential (primary) hypertension (principal); R07.9 Chest pain, unspecified; R00.2 Palpitations; E03.9 Hypothyroidism, unspecified; M19.90 Unspecified osteoarthritis, unspecified site; F17.210 Nicotine dependence, cigarettes, uncomplicated; E66.9 Obesity, unspecified; Z68.34 Body mass index [BMI] 34.0-34.9, adult
CPT/HCPCS: 36415; 71046-TC-FY; 80053; 80061; 81003; 82550; 83036; 83690; 83721; 83735; 83880; 84100; 84439; 84443; 84481; 84484; 85025; 85379; 85610; 87086; 93005; 93010; 93306-TC; 93925-TC; 93970-TC; 99283-25; G0378